=== PATIENT | male | born 1955 | race Caucasian/White ===

== ENCOUNTER 2020-10-19 09:25 | Day surgery (SDC) | payer MEDICARE, OTHER ==
[~2020-10-19] VITALS: Ht 182.9 cm; Wt 87.3 kg
[~2020-10-19 09:25] MED LIST: COZAAR50 MG PO; CYCLOBENZAPRINE10 MG PO; FLOMAX0.4 MG PO; FLONASE SENSIM5.9 ML; METHOCARBAMOL500 MG PO; NAPROSYN500 MG PO; NEURONTIN300 MG PO; PROSCAR5 MG PO; VERTICALM25 MG PO; ZOCOR40 MG PO
--- NOTE | 2020-10-19 12:27 | NUR ---
10/19/20 1227 Erica Oneill 1223: PT ARRIVES TO PACU VIA STRETCHER FOR RECOVERY. VSS, MAINTAING OWN ARIWAY. VSS, RESP EVEN AND UNLABORED. O2 SAT STABLE >98% ON 6L VIA FACEMASK. RESPONDS TO VERBAL STIMULI
--- NOTE | 2020-10-20 05:50 | OR ---
[facility] [address], [place] [address] Signed DATE OF OPERATION: 10/19/2020 SURGEON: Ever Jean MD PREOPERATIVE DIAGNOSIS: Left lateral calf subcutaneous mass (3-4 cm). POSTOPERATIVE DIAGNOSIS: Left lateral calf subcutaneous mass (3-4 cm). PROCEDURE: Excision of subcutaneous left fascial calf mass with primary closure. ESTIMATED BLOOD LOSS: None. INTRAOPERATIVE CONSULT: Dr. Eyal Kohler. INDICATIONS: Georges is a 65-year-old gentleman, who was asked to see me for a subcutaneous mass on his left lateral calf. It is in the area where the Achilles tendon comes up to meet the gastrocnemius muscle. 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 In the office, he cannot remember any specific trauma to that area. However, he is now having trouble wearing his boots because of this subcutaneous mass that causes pain. He said that it particularly bothers him when he is out hunting. To his knowledge, this area has never been infected or drained. He had been to his primary care provider. He was asked to have me look at as general surgeon. I explained to Georges this could be an indurated lipoma, but it could be something deeper with the fascia. We decided we would excise it under monitored anesthesia care with local anesthetic. There is risk to that surgery including, but not limited to bleeding, infection, scarring, change in contour of the skin as well as chronic pain and possible need for additional surgeries based on pathology results. He had expressed understanding and wished to proceed. DESCRIPTION OF PROCEDURE: I met with Georges and his girlfriend once again in our preop area. We could easily identify that area we marked that appropriately. After this, he was taken to the operating room and placed in the right lateral decubitus position under monitored anesthesia care. He was given preoperative antibiotics along with subcutaneous heparin. Electronically Signed By: EVER JEAN MD 10/20/20 0550 PATIENT NAME: GEORGES OLMEDO OPERATIVE REPORT DATE OF : 55 REPORT #: [id number] PHYSICIAN: EVER JEAN MD PCP: MAGGIE GARCIA PA-C REPORT IS CONFIDENTIAL AND NOT TO BE RELEASED WITHOUT AUTHORIZATION [facility] [address], [place] [address] Signed SCDs were utilized on his right leg. The left foot and calf were prepped and draped in the usual sterile fashion, all the way up to the level of the knee in the popliteal fossa. We injected local anesthetic in and around the lesion. A linear vertical incision was made over the lesion, carried down through the tissue bluntly and with the cautery. We encountered a very hard discoid area probably 3 cm in diameter involving the fascia. I had contacted our orthopedic surgeon over the phone to review the above findings. It was felt that the elliptical incision to remove that lesion with primary closure of the fascia would be appropriate at this time. We went ahead and proceed in that direction and closed the fascia with interrupted [id number] and simple #1 Vicryl sutures. We had freed up the skin edges laterally and medially to help bring that area together. The wound was irrigated and suctioned out until clear. We then closed the dermis with interrupted 3-0 subcuticular Monocryl sutures. The skin edges were reapproximated with a running 5-0 fast absorbing plain gut suture. Dry gauze and ABD and a 4-inch Peter wrap was then applied. Georges was then transferred over his hospital bed and taken into recovery room in stable condition. We did marci the specimen appropriately with silk sutures. Ever Jean MD ALB/MODL /[id number] cc: MD Maggie Rodriguez PA-C Bradley Adams, MD Copies: EVER JEAN MD, BRADLEY MD ~ Electronically Signed By: EVER JEAN MD 10/20/20 0550 PATIENT NAME: GEORGES OLMEDO OPERATIVE REPORT DATE OF : 55 REPORT #: [id number] PHYSICIAN: EVER JEAN MD PCP: MAGGIE GARCIA PA-C REPORT IS CONFIDENTIAL AND NOT TO BE RELEASED WITHOUT AUTHORIZATION
--- NOTE | 2020-11-28 17:37 | PATH ---
[facility] [address] [place], [place] [address] Signed THIS IS AN ADDENDUM REPORT SPECIMEN(S): A LEFT CALF SPECIMEN SOURCE: A. LEFT CALF CLINICAL HISTORY: Abnormal skin growth of left calf FINAL PATHOLOGIC DIAGNOSIS: Subcutaneous mass, left calf, excision: - Dense fibrocollagenous tissue with associated stromal cellular atypia; Final diagnosis pending consultation. - see Comment. COMMENT: Sections demonstrate hypocellular dense fibroconnective tissue with scattered spindled to ovoid cells within the stroma. Focally, rare cells demonstrate nuclear atypia characterized by enlarged, irregular nuclei with prominent nucleoli. Tissue necrosis and atypical mitoses are not seen. Immunohistochemical stains (with appropriately staining controls) were performed. The spindle cells are positive for both smooth muscle actin and desmin. The spindle cells are negative for GINO, pancytokeratin and CD34. Scattered few S100 positive cells are present in the lesion. The lesion is favored to represent a fibroblastic/myofibroblastic proliferation, but the case will be sent for soft tissue pathology consultation and the results reported in an addendum. As part of [facility]' Quality Improvement Program, this case was reviewed by another member of our pathology staff. NAL: :cml:C2NR MICROSCOPIC EXAMINATION: Histologic sections of all submitted blocks are examined by light microscopy. These findings, together with the gross examination, support the pathologic diagnosis. GROSS DESCRIPTION: The specimen, labeled "Georges Olmedo," and designated on the requisition "subcutaneous mass left calf; short suture superior, long suture lateral, PATIENT NAME: GEORGES OLMEDO PATHOLOGY DATE OF : 55 REPORT #: [id number] PHYSICIAN: JOCELYN PARKER PCP: PADMINI GARCIA PA-C REPORT IS CONFIDENTIAL AND NOT TO BE RELEASED WITHOUT AUTHORIZATION [facility] [address] [place], [place] [address] Signed double suture skin," is received in formalin and consists of a 2.7 x 2.3 x 0.8 cm oriented portion of white-town[place] rubbery fibrous tissue. No skin is grossly identified. A short suture identifies the superior margin and is redesignated 12 o'clock, a long suture at the lateral margin and is redesignated 3 o'clock, and a double suture identifies the skin per the requisition. The specimen is inked as follows: 9-12-3 o'clock - black, 3-6-9 o'clock -blue, and the anterior surface (skin, double suture) is inked yellow. The specimen is serially sectioned from 9-3 o'clock and entirely submitted in four cassettes. Cassette summary: (A1) 9 o'clock half (A2-A3) body of specimen submitted from 9 to 3 o'clock (A4) 3 o'clock half. FB (under the direct supervision of a pathologist) The Gross Description was prepared using a voice recognition system. The report was reviewed for accuracy; however, sound-alike word errors, addition and/or deletions may occur. If there is any question about this report, please contact Client Services. ADDITIONAL NOTES: Immunohistochemical and/or in situ hybridization studies were performed on this case with the appropriate positive controls that react as expected. This test was developed and its performance characteristics determined by [facility]. It has not been cleared or approved by the U.S. Food and Drug Administration. The FDA has determined that such clearance or approval is not necessary. This test is used for clinical purposes. It should not be regarded as investigational or for research. [facility] is certified under the Clinical Laboratory Improvement Amendments of 1988 (CLIA) as qualified to perform high complexity clinical laboratory testing. This assay has not been validated for specimens that have been decalcified. PERFORMING LABORATORY: The technical component was performed by [facility], [address] [place] [id number] (Failure Analysis Technician: Mallorie Mooer MD; CLIA# [id number]). [facility], [address] [address] (CLIA# [id number]). PATIENT NAME: GEORGES OLMEDO PATHOLOGY DATE OF : 55 REPORT #: [id number] PHYSICIAN: JOCELYN PARKER PCP: PADMINI GARCIA PA-C REPORT IS CONFIDENTIAL AND NOT TO BE RELEASED WITHOUT AUTHORIZATION [facility] [address] [place], [place] [address] Signed REASON FOR ADDENDUM: To add results of expert consultation. 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 ADDENDUM COMMENT: The above diagnosis reflects the consultation from [facility] department of pathology. Please see consultation pathology report ([id number]) for complete details. The comment from the consulting pathologist is as follows: "HE sections demonstrates poorly circumscribed and infiltrative, relatively hypocellular proliferation with abundant dense collagenized stroma which arises in the deep subcutaneous in associated with /invading into the deep fascia. While, minimal attached adipose tissue is present, the fibroblastic component notably includes adipose tissue with varying size and shape of adipocytes. Scattered through the collagenized stroma are stellate fibroblasts as well as cells with mild to moderate cytologic atypia including rare multinucleateed cells, often these atypical cells have smudge chromatin. Focally these atypical cells extend way from the fibroblastic area into the scant amount of attached adipose tissue. No increased mitoses are identified (<1/HPF) and no necrosis is present. The non-lipogenic component is transected at the excision/biopsy edge. The following immunostains were available for my review with the results in tumor cells as follows: - Desmin: Patchy positive. - SMA: Patchy positive. - S100: Negative (present in scattered inflammatory/mast cells) - CD34: Negative (argues against solitary fibrous tumor, nuchal-type fibroma, harding fibroma) - GINO: Negative. The following additional immunostains were performed and evaluated at [facility] with the results in tumor cells as follows: - MDM2: Positive, nuclear expression (supports atypical lipomatous tumor/liposarcoma) - CDK4: Positive, nuclear expression (supports atypical lipomatous tumor/liposarcoma) - p16: Positive, strong diffuse (supports atypical lipomatous tumor/liposarcoma) PATIENT NAME: GEORGES OLMEDO PATHOLOGY DATE OF : 55 REPORT #: [id number] PHYSICIAN: JOCELYN PATHOLOGY PCP: PADMINI GARCIA PA-C REPORT IS CONFIDENTIAL AND NOT TO BE RELEASED WITHOUT AUTHORIZATION [facility] [address] [place], [place] [address] Signed - Beta-catenin: Negative (argues against desmoid fibromatosis. - MUC4: Negative (argues against low-grade fibromyxoid tumor) - SMA: Focal positive, most accentuated at the periphery. - CD163: Highlights scattered histocytes. Taken together, the features are of focal dedifferentiated liposarcoma arising in a background of atypical lipomatous tumor (ALT). The lack of significant mitoses (<1/10 HPF) AND the relative hypocellularity of the non-lipogenic (dedifferentiated component) is most consistent with "low-grade" dedifferentiation. Low-grade dedifferentiation is controversial as many ALTs may have relatively broad fibrous bands. However, given that this non-lipogenic component is relatively large (spanning2.5 cm), this is best classified as low-grade dedifferentiation (ref). The tumor transected at the excision edge/margin. Reference Vi K, Farida K, Yeradamv O, Saige D, Jack [facility]. Correlation of histological grade of dedifferentiation with clinical outcome in 55 patients with dedifferentiated liposarcomas. Hum Pathol. 2017 Jan;66:86-92 Case seen by: ANDRÉS Mims, MPH - Pathology Resident Corry Cox MD - Pathologist Pathology, [facility]" A diagnostic alert was initiated by Dr. Sanchez (Dr. Mitchell to be called by [email or web address] Client Services department) on 11/28/20. NAL:cml Diagnostician: Mary Sanchez MD Pathologist Electronically Signed 11/28/2020 Copies: ~ PATIENT NAME: GEORGES OLMEDO PATHOLOGY DATE OF : 55 REPORT #: [id number] PHYSICIAN: JOCELYN PATHOLOGY PCP: PADMINI GARCIA PA-C REPORT IS CONFIDENTIAL AND NOT TO BE RELEASED WITHOUT AUTHORIZATION
== END 2020-10-19 13:18 | disposition home or self-care (01) ==
LOC: DS 09:25
PROVIDERS: ATTEND Colon & Rectal Surgery
PROC: 0JBP0ZZ Excision of Left Lower Leg Subcutaneous Tissue and Fascia, Open Approach (ICD-10-PCS; principal; 2020-10-19 10:30)
DX: R22.42 Localized swelling, mass and lump, left lower limb (principal); I10 Essential (primary) hypertension; N40.0 Benign prostatic hyperplasia without lower urinary tract symptoms; E78.5 Hyperlipidemia, unspecified; F17.210 Nicotine dependence, cigarettes, uncomplicated
CPT/HCPCS: 00400; 99406; J0690; J1644; J2704; J3010; J7121